=== PATIENT | female | born 1970 | race Caucasian/White ===

== ENCOUNTER 2017-08-23 13:59 | Emergency (ER) | payer MEDICAID ==
[2017-08-23] MEDS ORDERED: NALBUPHINE HCL 20 MG/ML AMPUL IM ONE (15:40)
[2017-08-23] MEDS ORDERED: NALBUPHINE HCL 20 MG/ML AMPUL ONE (15:44)
--- NOTE | 2017-08-23 15:49 | ERNOTE ---
Back Pain ER HPI Date of Service: 08/23/17 Presenting Symptoms: hx chronic back pain Time Seen by Provider: 08/23/17 15:21 Source: patient Exam Limitations: no limitations Allergies/Adverse Reactions: Allergies No Known Allergies Allergy (Verified 08/23/17 14:30) Home Medications: HOME MEDICATIONS Acetaminophen/Pyrilamine/Caff [Midol Caplet] 1 each PO Q4H PRN 03/20/16 [Last Taken Unknown] Albuterol Sulfate [Ventolin Hfa] 180 mcg IH Q4H PRN 03/20/16 [Last Taken Unknown ] Propranolol HCl 10 mg PO TID PRN 03/20/16 [Last Taken Unknown] Albuterol Sulfate [Albuterol Sulfate 2.5 MG/0.5ML] 1 vial IH Q4H PRN 07/14/17 [ Last Taken Unknown] Meloxicam [Mobic] 7.5 mg PO DAILY #30 tab 08/23/17 [Last Taken Unknown] Narrative: Pt. comes in with c/o R lower back pain for 3 months that is intermittent and started to worsen 3 days ago and she went to her chiropractor and told that she had SI joint dysfunction. Pt. also has been taking Ibuprofen and Flexeril with mild relief for this and denies any full alleviation of symptoms. Review of Systems - Review of Systems Constitutional: Present: no symptoms reported. Absent: recent illness, fever, chills, weakness, fatigue, malaise EYE: Present: no symptoms reported ENT: Present: no symptoms reported Respiratory: Present: no symptoms reported. Absent: shortness of breath, cough , wheezing Cardiology: Present: no symptoms reported. Absent: chest pain, palpitations, edema Gastrointestinal/Abdominal: Present: no symptoms reported. Absent: nausea, vomiting, diarrhea Genitourinary: Present: no symptoms reported. Absent: frequency, decreased urinary output, other - incontinence Musculoskeletal: Present: back pain - R lower Skin: Present: no symptoms reported. Absent: rash, change in hair/nails Neurological: Present: no symptoms reported. Absent: headache, dizziness/light- headedness, numbness, tingling Endocrine: Present: no symptoms reported Hematologic/Lymphatic: Present: no symptoms reported All Other Systems: All systems neg except as marked - Patient's Past Medical History Patient History - Medical: No pertinent hx Patient History - Cardiac/Respiratory: Asthma, COPD - Social History Living Situations: home Psych History: No pertinent hx Smoking Status: Current every day smoker Alcohol Use: none Drug Use: none Physical Exam - Physical Exam General Appearance: Present: wd/wn, alert, no apparent distress Head Exam: Present: normal inspection, no evidence of injury Eye Exam: Normal inspection: bilateral Neck: Present: normal inspection, nontender, supple, full range of motion. Absent: lymphadenopathy (R), lymphadenopathy (L) Respiratory: Present: no respiratory distress, normal breath sounds, no accessory muscle use, chest nontender, lungs clear Cardiovascular/Chest: Present: regular rate, rhythm, no murmur, normal peripheral pulses Back Exam: Present: normal range of motion, no vertebral tenderness, other - SI tenderness Extremity Exam: Present: normal inspection, non-tender, normal range of motion, no edema ED Progress - Vital Signs Patient's Vital Signs:: I have reviewed the patient's vital signs. Vital Signs: Vital Signs 08/23/17 14:23 Temperature 36.4 C L Pulse Rate 71 Respiratory 12 Rate Blood Pressure 148/100 O2 Sat by Pulse 99 Oximetry - Progress/Reassessment Chief Complaint: Back Pain Progress:: Improved Departure Clinical Impression: Sacroiliitis - Departure Disposition: Home self-care Condition: Good Instructions: Sacroiliac Joint Dysfunction Additional Instructions: Please follow up with Dr Abbasi or his nurse practitioner by calling for appointment. May take 1 capful daily of miralax to regulate bowels. Referrals: Cesar Rico MD [Primary Care Provider] - Keegan Abbasi MD [Courtesy Staff] - Prescriptions: Meloxicam [Mobic] 7.5 mg PO DAILY #30 tab
[2017-08-23 16:21] VITALS: BP 130/72
== END 2017-08-23 16:05 | disposition home or self-care (01) ==
LOC: ER 13:59
DX: M46.1 Sacroiliitis, not elsewhere classified (principal); F17.200 Nicotine dependence, unspecified, uncomplicated; J44.9 Chronic obstructive pulmonary disease, unspecified